=== PATIENT | female | born 1985 | race Caucasian/White ===

== ENCOUNTER 2017-10-14 17:09 | Emergency (ER) | payer OTHER ==
--- NOTE | 2017-10-14 17:42 | RAD ---
THREE VIEWS RIGHT WRIST: 10/14/17 HISTORY: Injury. Pain. Fall. FINDINGS: Intercarpal and radiocarpal joint spaces are preserved. No evidence of an acute carpal bone fracture. There is a negative ulnar variance. No significant joint effusion. IMPRESSION: No definite fracture. Clinical correlation is essential. If there is pain in the anatomic snuff box, immobilization and followup imaging in 7 to 10 days along with a dedicated scaphoid view. POS: [facility]
[2017-10-14] MEDS ORDERED: Ketorolac Tromethamine 60 MG/2 ML VIAL ONE (17:52)
== END 2017-10-14 18:44 | disposition home or self-care (01) ==
LOC: ERS 17:09
DX: S63.501A Unspecified sprain of right wrist, initial encounter (principal); F17.210 Nicotine dependence, cigarettes, uncomplicated; W19.XXXA Unspecified fall, initial encounter
CPT/HCPCS: 29125; 96372; 99406; J1885

== ENCOUNTER 2018-03-06 17:38 | Emergency (ER) | payer OTHER ==
[2018-03-06] MEDS ORDERED: Dexamethasone 10 MG/ML VIAL ONE (18:41)
== END 2018-03-06 18:56 | disposition home or self-care (01) ==
LOC: ERS 17:38
DX: J06.9 Acute upper respiratory infection, unspecified (principal); K21.9 Gastro-esophageal reflux disease without esophagitis; Z87.891 Personal history of nicotine dependence
CPT/HCPCS: 94640; J1100; J7620

== ENCOUNTER 2018-07-06 10:29 | Outpatient (CLI) | payer OTHER ==
--- NOTE | 2018-07-06 13:26 | MRI ---
MRI CERVICAL SPINE WITHOUT CONTRAST: HISTORY: Cervical radiculopathy. Bilateral shoulder pain. Limited range of motion. COMPARISON: None. TECHNIQUE: A cervical spine MRI is performed without intravenous Gadolinium administration. Multisequential, mu ltiplanar imaging is performed. FINDINGS: There is straightening of the normal cervical lordosis. Appropriate T1 marrow signal intensity. No evidence of fracture. No STIR hyperintensity to suggest vertebral body edema or ligamentous injury. The visualized brain parenchyma, cervicomedullary junction, cervical cord, and upper thoracic cord prater ve normal size and signal intensity. Axial images are limited due to motion degradation on multiple sequences. C2-C3: No significant central canal stenosis or neural foraminal narrowing. C3-C4: No significant central canal stenosis or neural foraminal narrowing. C4-C5: There may be a small central disk bulge; [id number], no significant central canal stenosi s or neural foraminal narrowing. C5-C6: No significant central canal stenosis or foraminal narrowing. C6-C7: No significant central canal stenosis or neural foraminal narrowing. C7-T1: No significant central canal stenosis or neural foraminal narrowing. IMPRESSION: Limited evaluation in the axial sequences due to motion degradation. [id number], no evidence of high-grade central canal stenosis or high-grade neural foraminal narrowing. POS: [facility]
== END 2018-07-06 10:30 | disposition home or self-care (01) ==
LOC: TBSIIMAG 10:29
PROVIDERS: ATTEND Specialist
DX: M54.12 Radiculopathy, cervical region (principal)
CPT/HCPCS: 72141

== ENCOUNTER 2019-01-20 14:10 | Outpatient (CLI) | payer OTHER ==
--- NOTE | 2019-01-20 16:07 | MRI ---
MRI lumbar spine noncontrast: HISTORY: Lumbar radiculopathy. Radiation on the left lower extremity. COMPARISON: None Correlation: CT lumbar spine 09/20/2012 FINDINGS: Appropriate T1 marrow signal intensity of the lumbar vertebra. Lumbar spine vertebral body height is maintained. No fracture. No significant STIR hyperintensity to suggest vertebral body edema or ligamentous injury Symmetric signal intensity of the paraspinal muscles Appropriate signal intensity visualized solid organs Conus medullaris terminates at the upper aspect of L1 T12-L1:Adequate disc hydration. No significant central canal stenosis or neural foraminal narrowing. L1-L2:Adequate disc hydration. No significant central canal stenosis or neural foraminal narrowing. L2-L3:Adequate disc hydration. No significant central canal stenosis or neural foraminal narrowing. L3-L4:Adequate disc hydration. No significant central canal stenosis or neural foraminal narrowing L4-L5:Adequate disc hydration. No significant loss of disc space height. Broad-based disc bulge abuts the ventral thecal sac. Mild central canal stenosis. Bilaterally, neural foramina are patent L5-S1:Adequate disc hydration. No significant central canal stenosis or neural foraminal narrowing IMPRESSION: No significant central canal stenosis or neural foraminal narrowing. Mild central canal stenosis at L 4-L5.
== END 2019-01-20 14:11 | disposition home or self-care (01) ==
LOC: BICMRI 14:10
PROVIDERS: ATTEND Specialist
DX: M54.16 Radiculopathy, lumbar region (principal); M48.061 Spinal stenosis, lumbar region without neurogenic claudication
CPT/HCPCS: 72148

== ENCOUNTER 2019-03-12 13:41 | Emergency (ER) | payer OTHER ==
--- NOTE | 2019-03-12 14:14 | RAD ---
EXAM: XR Wrist 3 Rt View STANDARD PROVIDED CLINICAL HISTORY: Pain COMPARISON: 10/14/2017 FINDINGS: There is no evidence for fracture or other acute osseous abnormality. Negative ulnar variance is rede monstrated. Alignment appears otherwise anatomic. Joint spaces appear preserved. IMPRESSION: No evidence for an acute osseous abnormality. If there is persistent clinical concern, conservative m anagement and follow-up imaging advised.
--- NOTE | 2019-03-12 14:15 | RAD ---
EXAM: XR Hand Rt 3 View STANDARD PROVIDED CLINICAL HISTORY: Pain FINDINGS: There is no evidence for fracture or other acute osseous abnormality. Alignment appears anatomic. Tessa nt spaces appear preserved. IMPRESSION: No evidence for an acute osseous abnormality. If there is persistent clinical concern, conservative m anagement and follow-up imaging advised.
== END 2019-03-12 14:40 | disposition home or self-care (01) ==
LOC: SCSER 13:41
DX: S63.501A Unspecified sprain of right wrist, initial encounter (principal); S60.011A Contusion of right thumb without damage to nail, initial encounter; K21.9 Gastro-esophageal reflux disease without esophagitis; F17.210 Nicotine dependence, cigarettes, uncomplicated; Z79.899 Other long term (current) drug therapy; W18.30XA Fall on same level, unspecified, initial encounter; Y99.0 Civilian activity done for income or pay

== ENCOUNTER 2019-04-23 15:41 | Emergency (ER) | payer OTHER | END 2019-04-23 16:30 | disposition home or self-care (01) | LOC: SCSER 15:41 | DX: J20.9 Acute bronchitis, unspecified (principal); K21.9 Gastro-esophageal reflux disease without esophagitis; F17.210 Nicotine dependence, cigarettes, uncomplicated; Z79.899 Other long term (current) drug therapy; Z79.891 Long term (current) use of opiate analgesic | CPT/HCPCS: 87804; 99284 ==

== ENCOUNTER 2021-12-19 14:05 | Outpatient (CLI) | payer BC | END 2021-12-19 14:06 | disposition home or self-care (01) | LOC: SCSMRI 14:05 | PROVIDERS: ATTEND Orthopaedic Surgery | DX: M25.511 Pain in right shoulder (principal); G89.29 Other chronic pain; M75.121 Complete rotator cuff tear or rupture of right shoulder, not specified as traumatic ==

== ENCOUNTER 2022-01-16 09:28 | Outpatient (CLI) | payer BC ==
[2022-01-16 11:11] LABS: #Basophils 0.1 10x3/uL (0.0-0.2); #Eosinphils 0.4 10x3/uL (0.0-0.5); #Monocytes 0.7 10x3/uL (0.0-1.1); #Neutrophils 5.2 10x3/uL (1.5-8.4); %Basophils 0.7 % (0.0-2.0); %Eosinophils 4.4 % (0.0-6.0); %Lymphocytes 30.5 % (18.0-47.0); %Monocytes 7.3 % (0.0-10.0); %Neutrophils 56.9 % (40.0-75.0); Hemoglobin 12.3 g/dL (12.0-15.5); Mean Corpuscular HGB CONC 32.6 g/dL (32.0-36.0); Mean Corpuscular Hemoglobin 29.7 pg (27.0-33.0); Mean Corpuscular Volume 91.1 fl (81.6-98.3); Platelet Count 204 10x3/uL (150-450); RBC Distribution Width 14.6 % (11.5-14.5); Red Blood Cell (RBC) Count 4.14 10x6/uL (3.90-5.03); White Blood Cell (WBC) Count 9.2 10x3/uL (3.5-10.5)
[2022-01-16 11:27] LABS: BHCG - Serum Negative (NEGATIVE); Pregs Control Background? CLEAR/WHITE (CLR/WHITE); Pregs Control Bar Appear? YES (CONTROL BAR)
== END 2022-01-16 09:29 | disposition home or self-care (01) ==
LOC: LABBT 09:28
PROVIDERS: ATTEND Orthopaedic Surgery
DX: Z01.812 Encounter for preprocedural laboratory examination (principal); S46.811A Strain of other muscles, fascia and tendons at shoulder and upper arm level, right arm, initial encounter; Z20.822 Contact with and (suspected) exposure to COVID-19
CPT/HCPCS: 84703; 85025; 87811

== ENCOUNTER 2022-01-21 07:37 | Day surgery (SDC) | payer BC ==
[2022-01-19 15:13] VITALS: BMI 28.0
[2022-01-21] MEDS ORDERED: fentaNYL Citrate/PF 100 MCG/2 ML SYRINGE ONE (07:38)
[2022-01-21] MEDS ORDERED: Midazolam HCl 2 mg/2 ml Vial ONE (08:10)
[2022-01-21] MEDS ORDERED: Fentanyl 100 MCG/2 ML VIAL ONE (08:10)
[2022-01-21] MEDS ORDERED: Xylocaine 1% w/ Epi 1:100K 10 ML VIAL ONE (08:39)
[2022-01-21] MEDS ORDERED: CEFAZOLIN 2 GM VIAL ONE (08:43)
[2022-01-21] MEDS ORDERED: Sodium Chloride 0.9% 100 ML ONE (08:43)
[2022-01-21] MEDS ORDERED: Ropivacaine 2% HCl/PF (20 MG/10 ML VIAL) ONE (08:55)
[2022-01-21] MEDS ORDERED: Ondansetron PF 4 MG/2 ML Vial ONE (08:55)
[2022-01-21] MEDS ORDERED: Dexamethasone 20 MG/5 ML VIAL ONE (08:55)
[2022-01-21] MEDS ORDERED: Rocuronium Bromide 10 MG/ML (10ML VIAL) ONE (08:55)
[2022-01-21] MEDS ORDERED: Glycopyrrolate 0.2 MG/ML 5 ML SYRINGE ONE (08:55)
[2022-01-21] MEDS ORDERED: PROPOFOL 200 MG/20 ML VIAL ONE (08:55)
[2022-01-21] MEDS ORDERED: Phenylephrine 10 MG/ML VIAL ONE (08:55)
[2022-01-21] MEDS ORDERED: HYDROcodone/Acetaminophen 5/325 mg Tablet PO PRN ×2 (09:15)
[2022-01-21] MEDS ORDERED: Ondansetron PF 4 MG/2 ML Vial IVP PRN (09:15)
[2022-01-21] MEDS ORDERED: Ropivacaine 0.2% 550 ML 550 ML NERVE BLCK SCH (09:15)
[2022-01-21] MEDS ORDERED: traMADol HCl 50 MG TAB PO PRN ×2 (09:15)
[2022-01-21] MEDS ORDERED: Promethazine HCl 25 MG/ML VIAL IM PRN (09:15)
[2022-01-21] MEDS ORDERED: Zolpidem Tartrate 5 MG TAB PO PRN (09:15)
[2022-01-21] MEDS ORDERED: SUGAMMADEX SODIUM 200 MG/2 ML VIAL ONE (09:48)
== END 2022-01-21 13:25 | disposition home or self-care (01) ==
LOC: SDC 07:37
PROVIDERS: ATTEND Orthopaedic Surgery
PROC: 3E0T3BZ Introduction of Anesthetic Agent into Peripheral Nerves and Plexi, Percutaneous Approach (ICD-10-PCS; principal; 2022-01-21)
PROC: 0RBJ4ZZ Excision of Right Shoulder Joint, Percutaneous Endoscopic Approach (ICD-10-PCS; principal; 2022-01-21)
DX: M75.111 Incomplete rotator cuff tear or rupture of right shoulder, not specified as traumatic (principal); M65.811 Other synovitis and tenosynovitis, right shoulder; M75.51 Bursitis of right shoulder; G89.29 Other chronic pain; M54.9 Dorsalgia, unspecified; F17.210 Nicotine dependence, cigarettes, uncomplicated; Z86.16 Personal history of COVID-19; Z79.1 Long term (current) use of non-steroidal anti-inflammatories (NSAID); Z79.899 Other long term (current) drug therapy; Z91.041 Radiographic dye allergy status
CPT/HCPCS: A4306; J0690; J1100; J2250; J2370; J2405; J2704; J2795; J3010; J3490

== ENCOUNTER 2023-05-23 08:52 | Emergency (ER) | payer BC ==
[2023-05-23 10:16] LABS: SARS-CoV-2 NAA Rapid Test Not Detected (NotDetected)
== END 2023-05-23 09:58 | disposition home or self-care (01) ==
LOC: ERS 08:52
DX: J06.9 Acute upper respiratory infection, unspecified (principal); F17.210 Nicotine dependence, cigarettes, uncomplicated; Z20.822 Contact with and (suspected) exposure to COVID-19
CPT/HCPCS: 99283

== ENCOUNTER 2024-11-03 18:39 | Emergency (ER) | payer BC, OTHER ==
[2024-11-03] MEDS ORDERED: Ibuprofen 200 MG TAB ONE (19:38)
[2024-11-03] MEDS ORDERED: Orphenadrine Citrate 100 MG ER.TAB ONE (19:38)
== END 2024-11-03 20:44 | disposition home or self-care (01) ==
LOC: ERS 18:39
DX: S20.213A Contusion of bilateral front wall of thorax, initial encounter (principal); M54.50 Low back pain, unspecified; M54.6 Pain in thoracic spine; F17.210 Nicotine dependence, cigarettes, uncomplicated; V89.2XXA Person injured in unspecified motor-vehicle accident, traffic, initial encounter; Y93.89 Activity, other specified
CPT/HCPCS: 71045; 72128; 72131